=== PATIENT | female | born 1940 | race Caucasian/White ===

== ENCOUNTER → 2017-11-17 | Outpatient (CLI) | payer MEDICARE ==
[~2017-11-17] MED LIST: ASPI-516 CHEW; ASPI1TAB57 PO; CLON.5 PO; COQ-50CA2 PO; FOLI800T PO; GABA100C4 PO; HYDR-3583 PO; LOVA40TA PO; METH2.5T PO; MEVA40TA6; MULT1TAB46 PO; NEUR100C; PRED1 PO; SERT-129 PO; VITA400T20 PO; WALKER/ADULT/FO1 MIS
== END ==
LOC: CPRE 12:53
PROVIDERS: ATTEND Orthopaedic Surgery Orthopaedic Trauma
DX: Z01.810 Encounter for preprocedural cardiovascular examination (principal); Z01.812 Encounter for preprocedural laboratory examination; Z01.811 Encounter for preprocedural respiratory examination; M16.11 Unilateral primary osteoarthritis, right hip; M79.609 Pain in unspecified limb; Z79.01 Long term (current) use of anticoagulants; Z13.9 Encounter for screening, unspecified; Z96.60 Presence of unspecified orthopedic joint implant

== ENCOUNTER 2017-11-23 05:14 | Inpatient (IN) | payer MEDICARE ==
[~2017-11-23] VITALS: Ht 157.5 cm; Wt 59.0 kg
[~2017-11-23 05:14] MED LIST changes: -ASPI-516 CHEW; -COQ-50CA2 PO; -HYDR-3583 PO; -MEVA40TA6; -MULT1TAB46 PO; -NEUR100C; -VITA400T20 PO; -WALKER/ADULT/FO1 MIS
[2017-11-23] MEDS ORDERED: VITA400T20 PO (06:12)
[2017-11-23] MEDS ORDERED: COQ-50CA2 PO (06:12)
[2017-11-23] MEDS ORDERED: MULT1TAB46 PO (06:12)
[2017-11-23] MEDS ORDERED: METOPROLOL TARTRATE 25 MG TAB PO PRN (06:15)
[2017-11-23] MEDS ORDERED: CHLORHEXIDINE GLUCONATE 2 % 1 PACK (2 CLOTHS) TOPICAL PRN (06:15)
[2017-11-23] MEDS ORDERED: VANCOMYCIN 1000 MG/NS 250 ML (for <70 kg) IV SCH ×2 (06:15)
[2017-11-23] MEDS ORDERED: SODIUM CHLORID 0.9% 500 ML IV PRN (06:15)
[2017-11-23] MEDS ORDERED: POVIDONE IODINE 5% (ANTISEPSIS KIT) 4 APPLICATIONS EACH NARE PRN (06:15)
[2017-11-23] MEDS ORDERED: LACTATED RINGER'S 1000 ML IV PRN (06:15)
[2017-11-23] MEDS ORDERED: CHLORHEXIDINE GLUCONATE 4% SOLN 120 ML BTL TOPICAL SCH (06:15)
[2017-11-23] MEDS ORDERED: ceFAZolin 2 GM PREMIX 50 ML IV SCH (06:15)
[2017-11-23 06:21] LABS: BACTERIA, URINE RARE /hpf; BILIRUBIN, URINE NEG (NEG); BLOOD, URINE NEG (NEG); GLUCOSE,URINE NEG (NEG); HYALINE CAST, URINE 24 /lpf (RARE); KETONE, URINE NEG (NEG); MUCUS URINE FEW /lpf (OCC); NITRITE,URINE NEG (NEG); PH, URINE 5.5 (5.0-8.5); SQUAMOUS EPITHELIAL CELL URINE 2 /hpf (0-5); URINE COLOR YELLOW (YELLW/STRAW); URINE LEUKOCYTE ESTERASE LARGE (NEG)
[2017-11-23] MEDS ORDERED: GENTAMICIN SULFATE 80 MG/2 ML VIAL ONE (06:30)
[2017-11-23] MEDS ORDERED: ACETAMINOPHEN 1000 MG/100 ML 100 ML IV ONE (06:35)
[2017-11-23] MEDS ORDERED: MIDAZOLAM HCL 2 MG/2 ML VIAL ONE (06:36)
[2017-11-23] MEDS ORDERED: FAMOTIDINE 20 MG/2 ML VIAL ONE (06:44)
[2017-11-23] MEDS ORDERED: DEXAMETHASONE SOD PHOS 4 MG/ML VIAL ONE (06:53)
[2017-11-23] MEDS ORDERED: BUPIVACAINE/EPINEPHRINE 0.25% PF 30 ML VIAL ONE (06:53)
[2017-11-23] MEDS ORDERED: HEPARIN SODIUM - SQ 10,000 UNITS/ML VIAL ONE (06:57)
[2017-11-23] MEDS ORDERED: EXPAREL PERI-ARTICULAR INJECTION (TOTAL VOL. 60 ML) P-ARTICULR SCH ×2 (07:00)
[2017-11-23] MEDS ORDERED: TRANEXAMIC ACID INJ 900 MG in SODIUM CHLORIDE 0.9% INJ 100 ML IV SCH (07:00)
[2017-11-23] MEDS ORDERED: ASPI-516 CHEW (07:28)
[2017-11-23] MEDS ORDERED: HYDR-3583 PO (07:28)
[2017-11-23] MEDS ORDERED: WALKER/ADULT/FO1 MIS (07:28)
--- NOTE | 2017-11-23 08:31 | HHI.FF ---
Face to Face Verification Diagnosis: (1) S/P total hip arthroplasty Physical Therapy Gait training Hip: Total hip, Protocol: Right, Progress to weight bearing Right LE Weight Bearing: WB as tolerated Nursing Nursing: Dressing changes (teach and provide dressing supplies. nurse to eval and do dressing change first time. can leave primapore dressings with patient and have patient change dressing every other day. ) Dressing Changes: Coverderm/Primapore I have seen patient Jelena Grissom on 11/23/17. My clinical findings support the need for the requested home health care services because: Ltd mobility - disease progression I certify that my clinical findings support that this patient is homebound because: Post-op weakness Sanjay Corona/First Mani DESAI Nov 23, 2017 08:31
[2017-11-23] MEDS ORDERED: NALOXONE HCL 0.4 MG/ML AMP IV PUSH PRN (08:45)
[2017-11-23] MEDS: ACETAMINOPHEN 1000 MG/100 ML 100 ML IV SCH ×2 (08:45→21:01)
[2017-11-23] MEDS ORDERED: MORPHINE SULFATE 2 MG/ML INJ IV PUSH PRN (08:45)
[2017-11-23] MEDS ORDERED: ACETAMINOPHEN/HYDROcodone 325 MG/7.5 MG TAB PO PRN (08:45)
[2017-11-23] MEDS ORDERED: KETOROLAC TROMETHAMINE 30 MG/ML (IVP) VIAL IV PUSH SCH (08:45)
[2017-11-23] MEDS ORDERED: Post-op Orders (for Pharmacy) XX ONE (08:45)
[2017-11-23] MEDS ORDERED: ONDANSETRON HCL 4 MG/2 ML VIAL IVP PRN (08:45)
[2017-11-23] MEDS ORDERED: ACETAMINOPHEN/HYDROcodone 325 MG/5 MG TAB PO PRN (08:45)
--- NOTE | 2017-11-23 08:47 | PD.OP ---
cc: Osmin Menon MD Operative Report Date of Surgery: Nov 23, 2017 Preoperative Diagnosis: Severe right hip osteoarthritis Postoperative Diagnosis: Procedure: Right total hip arthroplasty by anterior approach Anesthesia: Gen. Surgeon: Osmin Menon Manager Terminal(s): KWASI Pollack PA-C The surgical procedure was assisted by my physician operating room assistant. My P.A. presence was necessary throughout this case for the manipulation and positioning of the surgical extremity. My P.A. was assisting me throughout the duration of this procedure. The skill set of a physician operating room assistant was medically necessary to complete this procedure. During the surgical case the assembler surgical garment was working at the back table and the physician operating room assistant was directly assisting me. Operation and Findings: PLAN OF ACTIVITY Weight bear as tolerated. DRAINS: 7-mm JOHN drain. IMPLANTS USED DePuy Corail size [10] collared stem with a size [50] Orlando Gription cup, [50 /32] Altrx poly liner, and a [standard] head. DETAILS OF PROCEDURE: This patient has a long history of hip pain. Patient was found to have severe osteoarthritis. The patient had radiographic evidence of joint space narrowing with [id number] arthritis and osteophytes around the acetabulum as well as the femoral head. There was also some cystic changes. The patient failed conservative treatment with pain medications, anti-inflammatories, physical therapy, assistive devices including a cane, as well as therapeutic injection of the hip. Patient's hip arthritis was limiting his ability to ambulate and perform activities of daily living. The patient wished to proceed with surgery and informed consent was obtained. Operative site was marked. I discussed both posterior approach and anterior approach with the patient and decision was made for anterior approach. Patient was brought to OR and placed on OR table. IV sedation and general anesthesia was administered by anesthesiologist. Patient positioned on a Alize table and was given IV antibiotics. Time-out procedure was performed. The hip and thigh were prepped with alcohol followed by Hibiclens. The thigh was draped in the usual sterile fashion. Clean Air Suite was used for this procedure. The procedure began with a 5-inch incision over the anterolateral thigh. Subcutaneous tissue was dissected with Bovie. The fascia over the tensa fasciae latae was incised. Care was taken to avoid injury to the lateral femoral cutaneous nerve. The tensor muscle was retracted laterally. Sartorius was retracted medially. Retractors were now placed. The reflected head of the rectus is now elevated. A capsulotomy was performed over the anterior head capsule. Sutures were placed to help retract the capsule. At this point the femoral head and neck were identified. With soft tissue protected, oscillating saw was used to make a cut through the femoral neck, the femoral head was now removed. At this point attention was turned to preparation of the acetabulum. The labrum was excised. The acetabulum was sequentially reamed up to size [50]. A Orlando cup was now placed. Fluoroscopy was used to aid in identification of appropriate version. Cup was fully impacted and found to have excellent fit. Hole eliminator was now placed. The liner was now impacted into the cup. At this point the hip was externally rotated. A hook was placed around the proximal femur. The capsule was released off the lateral and medial femur. The hip was now extended and adducted. Retractors were placed around the proximal femur to allow for exposure. A box osteotome was used to remove the lateral cortex of the femoral neck. A broach was used to help lateralize the prosthesis. Canal finder was used to create a path down the canal. Next, the canal was sequentially broached up to size [10]. This was found to be an excellent fit. Calcar planer was placed. A standard head was placed, and the hip was reduced. The hip was found to have excellent stability with good range of motion. The leg lengths were measured under fluoroscopy and found to be equal compared to preoperatively. Trial broach was removed. The Corail stem was opened. Stem was fully impacted into the proximal femur in appropriate version. The femoral head was placed. The hip was again reduced. Fluoroscopy confirmed excellent alignment of prosthesis. The wound was thoroughly irrigated and capsule was closed with #1 Vicryl. The fascia over the tensor fasciae muscle was closed with #1 Vicryl, subcutaneous tissue was closed with 3-0 Vicryl and the skin was closed with Dermabond skin closure. The capsule layers, muscle, and subcutaneous tissue were injected with a mixture of saline and bupivicaine. Dressings were applied. The patient was transferred to Recovery Room in stable condition. Osmin Menon MD Nov 23, 2017 08:47
[2017-11-23] MEDS: predniSONE 1 MG TAB PO SCH (09:00)
[2017-11-23] MEDS: PRAVASTATIN SOD 40 MG TAB PO SCH (09:00)
[2017-11-23] MEDS: SERTRALINE HCL 100 MG TAB PO SCH (09:00)
[2017-11-23] MEDS: CELECOXIB 200 MG CAP PO SCH ×2 (09:00→21:01)
[2017-11-23] MEDS: LACTATED RINGER'S 1000 ML INJ 1,000 ML IV SCH (09:05)
--- NOTE | 2017-11-23 09:06 | RADRPT ---
EXAM DATE/TIME: 11/23/2017 07:18 [facility] COMPARISON: No previous studies available for comparison. INDICATIONS : Right total hip arthroplasty. MEDICAL HISTORY : Unobtainable. SURGICAL HISTORY : Unobtainable. ENCOUNTER: Initial ACUITY: 1 day PAIN SCORE: Non-responsive. LOCATION: Right hip. CONCLUSION: Fluoroscopic images during right hip prosthesis. Adrian Heck MD on November 23, 2017 at 9:03 Board Certified Radiologist. This report was verified electronically.
[2017-11-23] MEDS ORDERED: DO NOT ADM ANY ANTICOAGULANT DRUGS PRN (09:45)
[2017-11-23] MEDS: ASPIRIN 81 MG CHEW TAB CHEW SCH ×2 (09:45→21:01)
--- NOTE | 2017-11-23 09:57 | RADRPT ---
EXAM DATE/TIME: 11/23/2017 09:06 [facility] COMPARISON: No previous studies available for comparison. INDICATIONS : Post right hip arthroplasty MEDICAL HISTORY : None. SURGICAL HISTORY : None. ENCOUNTER: Subsequent ACUITY: 1 day PAIN SCORE: Non-responsive. LOCATION: Right Hip FINDINGS: A lateral view of the right hip with AP pelvis was obtained. Right hip prosthesis. Mild degenerative changes left hip. No definite fractures, dislocations, lytic or sclerotic lesions are seen. The fitz nt space is well maintained. CONCLUSION: Right hip prosthesis. Adrian Heck MD on November 23, 2017 at 9:54 Board Certified Radiologist. This report was verified electronically.
[2017-11-23] MEDS ORDERED: PILL SPLITTER OTHER PRN (10:00)
[2017-11-23] MEDS ORDERED: TRANEXAMIC ACID INJ 1,000 MG in SODIUM CHLORIDE 0.9% INJ 100 ML IV SCH (11:00)
[2017-11-23] MEDS ORDERED: NEOSTIGMINE 5 MG/5 ML SYRINGE IV PUSH ONE (12:00)
[2017-11-23] MEDS ORDERED: ePHEDrine/NS 25 MG/5 ML SYRINGE IV ONE (12:00)
[2017-11-23] MEDS ORDERED: PROPOFOL 200 MG/20 ML AMP IV ONE (12:00)
[2017-11-23] MEDS ORDERED: GLYCOPYRROLATE 1 MG/5 ML SYRINGE IV PUSH ONE (12:00)
[2017-11-23] MEDS ORDERED: LIDOCAINE HCL 1% PF 5 ML SYRINGE OTHER ONE (12:00)
[2017-11-23] MEDS ORDERED: LACTATED RINGER'S 1000 ML INJ 1,000 ML IV ONE (12:00)
[2017-11-23] MEDS ORDERED: ONDANSETRON HCL 4 MG/2 ML VIAL IV ONE (12:00)
[2017-11-23] MEDS ORDERED: KETOROLAC TROMETHAMINE 30 MG/ML (IVP) VIAL IV PUSH ONE (12:00)
[2017-11-23] MEDS ORDERED: ROCURONIUM INJ 50 MG/5 ML SYRINGE IV PUSH ONE (12:00)
[2017-11-23] MEDS ORDERED: DEXAMETHASONE SOD PHOS 4 MG/ML VIAL IV ONE (12:00)
[2017-11-23 13:12] VITALS: BP 101/71; PULSE 86; RESP 17; TEMP 97.6; O2SAT 97
[2017-11-23] MEDS: ceFAZolin 2 GM PREMIX 50 ML IV SCH ×2 (13:38→21:00)
[2017-11-23] MEDS: GABAPENTIN 100 MG CAP PO SCH ×2 (13:39→21:01)
[2017-11-23 14:16] VITALS: O2SAT 96
[2017-11-23 16:00] VITALS: BP 149/82; PULSE 71; RESP 17; TEMP 96.4; O2SAT 95
[2017-11-23] MEDS: VANCOMYCIN INJ 1,000 MG in SODIUM CHLOR 0.9% 250 ML INJ 250 ML IV SCH (18:19)
[2017-11-23 18:23] VITALS: O2SAT 95
[2017-11-23 20:45] VITALS: BP 136/65; PULSE 78; RESP 17; TEMP 98; O2SAT 96
[2017-11-23] MEDS ORDERED: clonazePAM 0.5 MG TAB PO SCH (21:00)
[2017-11-23] MEDS: ACETAMINOPHEN/HYDROcodone 325 MG/10 MG TAB PO PRN (21:01)
[2017-11-24 00:45] VITALS: BP 117/59; PULSE 76; RESP 17; TEMP 97.6; O2SAT 96
[2017-11-24] MEDS: ceFAZolin 2 GM PREMIX 50 ML IV SCH (02:08)
[2017-11-24 04:07] VITALS: BP 92/59; PULSE 72; RESP 17; TEMP 98.4; O2SAT 96
[2017-11-24] MEDS: VANCOMYCIN INJ 1,000 MG in SODIUM CHLOR 0.9% 250 ML INJ 250 ML IV SCH (06:31)
--- NOTE | 2017-11-24 06:38 | PD.ORT.PN ---
Subjective Subjective Remarks POD 1 s/p right anterior total hip arthroplasty doing well. out of bed on own. pain controlled. no complaints. Objective Vitals Vital Signs Date Time Temp Pulse Resp B/P (MAP) Pulse Ox O2 Delivery O2 Flow Rate FiO2 11/24/17 04:07 98.4 72 17 92/59 (70) 96 11/24/17 00:45 97.6 76 17 117/59 (78) 96 11/23/17 22:30 Nasal Cannula 2.00 11/23/17 21:41 17 11/23/17 21:41 17 11/23/17 20:45 98.0 78 17 136/65 (88) 96 11/23/17 18:23 95 Nasal Cannula 2.00 11/23/17 16:00 96.4 71 17 149/82 (104) 95 11/23/17 14:16 96 Nasal Cannula 2.00 11/23/17 13:12 97.6 86 17 101/71 (81) 97 11/23/17 12:00 71 18 123/65 (84) 96 Nasal Cannula 2 11/23/17 10:00 72 15 124/58 (80) 96 Nasal Cannula 2 11/23/17 09:45 77 14 128/58 (81) 97 Nasal Cannula 2 11/23/17 09:30 72 14 115/56 (75) 96 Nasal Cannula 2 11/23/17 09:15 76 16 134/62 (86) 97 Nasal Cannula 2 11/23/17 09:00 79 17 116/56 (76) 99 Simple Mask 6 11/23/17 08:55 97.7 81 14 122/61 (81) 99 Simple Mask 6 I/O 11/23/17 11/23/17 11/23/17 11/24/17 11/24/17 11/24/17 07:00 15:00 23:00 07:00 15:00 23:00 Intake Total 1100 ml 240 ml Output Total 100 ml Balance 1000 ml 240 ml Intake Oral 240 ml Other 1100 ml Output Estimated Blood Loss 100 ml # Voids 1 # Bowel Movements 0 Imaging Last 24 hours Impressions Hip and Pelvis X-Ray 11/23/17 0832 Signed Impressions: Service Date/Time: November 09:06 - CONCLUSION: Right hip prosthesis. Adrian Heck MD Objective Remarks RLE: dressing blood soaked. full motion of hip and knee. neg lesli. full sensation distally Assessment & Plan Assessment and Plan 1) Right Anterior KOKO - POD 1 -WBAT -dressing change today prior to discharge -discharge home today with [facility] -DVT prophylaxis with 81mg aspirin BID when home -pain control -f/u with Hira or PA in 2 weeks Sanjay Corona/First Mani DESAI Nov 24, 2017 06:38
--- NOTE | 2017-11-24 06:54 | HHI.DS ---
Discharge Summary Admission Date Nov 23, 2017 at 05:14 Discharge Date: Nov 24, 2017 Admitting Diagnosis Right anterior total hip arthroplasty Diagnosis: (1) S/P total hip arthroplasty Diagnosis: Principal ICD Codes: Z96.649 - Presence of unspecified artificial hip joint Procedures Right anterior total hip arthroplasty Significant Findings Laboratory Tests Test 11/23/17 06:10 Urine Leukocyte Esterase LARGE (NEG) Urine WBC 11 /hpf (0-5) Urine Bacteria RARE /hpf (NONE) Urine Mucus FEW /lpf (OCC) PE at Discharge RLE: dressing blood soaked. full motion of hip and knee. neg lesli. full sensation distally Hospital Course Patient admitted from outpatient for elective right total hip arthroplasty. She tolerated the procedure well. She was admitted to [address] [place] [address]. She was out of bed on postoperative 0. On possibly 1 her pain was well-controlled. She was out of bed on her own. Dressing was blood saturated. It was changed on postoperative day 1. She was hemodynamically stable and fit for discharge home with home health care. She'll be fully weight-bearing. She'll daily dressing changes. She'll be sent home for 81 mg of aspirin twice a day for DVT prophylaxis. She'll follow-up in the office with Dr. Menon or his PA in 2 weeks. Pt Condition on Discharge: Good Discharge Disposition: Disch w/ Home Health Serv Discharge Instructions Diet Instructions: As Tolerated, No Restrictions Activities You Can Perform: Full Weight Bearing Follow up Referrals: Orthopedics - 2 Weeks @ [facility] with Osmin Menon MD New Medications: Aspirin (Aspirin) 81 Mg Chew 81 MG CHEW BID NEB for blood clot prevention for 30 Days, TAB 0 Refills Hydrocodone-Acetaminophen (Hydrocodone-Acetaminophen) 10-325 mg Tab 1 TAB PO Q4H PRN for PAIN, #60 TAB 0 Refills Walker/Adult/Folding (Walker/Adult/Folding) 1 Mis Mis EA .ROUTE DIRECTED, #1 0 Refills Continued Medications: Clonazepam (Klonopin) 0.5 Mg Tab 0.5 MG PO HS, #60 TAB 0 Refills Coenzyme Q10 (Ubidecarenone) (Coq-10) 50 Mg Cap 200 MG PO DAILY Folic Acid (Folic Acid) 0.8 Mg Tab 800 MCG PO for Nutritional Supplement, TAB 0 Refills Gabapentin (Gabapentin) 100 Mg Cap 100 MG PO BID, #60 CAP 0 Refills Lovastatin (Lovastatin) 40 Mg Tab 80 MG PO DAILY for Cholesterol Management, #60 TAB 0 Refills Methotrexate (Methotrexate) 2.5 Mg Tab 6 TAB PO Q7D, TAB 0 Refills Multiple Vitamin (Multi Vitamin Daily) 1 Tab Tab 1 TAB PO Prednisone (Prednisone) 1 Mg Tab 4 MG PO DAILY, TAB 0 Refills Sertraline (Sertraline) 100 Mg Tab 150 MG PO DAILY, #30 TAB 0 Refills Vitamin E Mixed (Vitamin E) 400 Unit Tablet 1 TAB PO DAILY Discontinued Medications: Aspirin DR (Aspirin 81) 81 Mg Tabdr 81 MG PO DAILY, TAB 0 Refills Sanjay Corona/Dough Machine Operator PA Nov 24, 2017 06:54
[2017-11-24 07:11] LABS: HEMOGLOBIN 11.8 GM/DL (11.6-15.3)
[2017-11-24 08:00] VITALS: BP 133/78; PULSE 70; RESP 17; TEMP 97.8; O2SAT 98
[2017-11-24] MEDS: ASPIRIN 81 MG CHEW TAB CHEW SCH (08:49)
[2017-11-24] MEDS: CELECOXIB 200 MG CAP PO SCH (09:00)
[2017-11-24] MEDS: LACTATED RINGER'S 1000 ML INJ 1,000 ML IV SCH (09:32)
[2017-11-24] MEDS: GABAPENTIN 100 MG CAP PO SCH (09:33)
[2017-11-24] MEDS: predniSONE 1 MG TAB PO SCH (09:33)
[2017-11-24] MEDS: SERTRALINE HCL 100 MG TAB PO SCH (09:33)
[2017-11-24] MEDS: ACETAMINOPHEN 1000 MG/100 ML 100 ML IV SCH (09:34)
[2017-11-24] MEDS: PRAVASTATIN SOD 40 MG TAB PO SCH (09:34)
[2017-11-24] MEDS: ACETAMINOPHEN/HYDROcodone 325 MG/10 MG TAB PO PRN ×2 (09:38→13:49)
[2017-11-24 10:41] VITALS: O2SAT 98
[2017-11-24 12:00] VITALS: BP 143/67; PULSE 63; RESP 17; TEMP 96.5; O2SAT 96
[2017-11-24] MEDS ORDERED: DOCUSATE SODIUM 100 MG CAP PO SCH (21:00)
== END 2017-11-24 14:53 | disposition home health service (06) | DRG 470 ==
LOC: HSDI 05:14 → N06A 13:02
PROVIDERS: ADMIT Orthopaedic Surgery Orthopaedic Trauma; ATTEND Orthopaedic Surgery Orthopaedic Trauma
PROC: 0SR90JA Replacement of Right Hip Joint with Synthetic Substitute, Uncemented, Open Approach (ICD-10-PCS; principal; 2017-11-23 06:48)
DX: M16.11 Unilateral primary osteoarthritis, right hip (principal)
CPT/HCPCS: 73501; 73502; 76000; 81001; 85014; 85018; 87077; 87086; 87186; C1776; C9290; J0131; J0690; J1100; J1580; J1644; J1885; J2250; J2405; J2710; J3010; J3370; J7050; J7120; J7512